=== PATIENT | male | born 1960 | race Caucasian/White ===

== ENCOUNTER → 2019-08-26 | Outpatient (CLI) | payer BC | END | disposition home or self-care (01) | LOC: RAD 15:30 | DX: R05 Cough (principal) ==

== ENCOUNTER → 2019-09-23 | Outpatient (CLI) | payer BC | END | disposition home or self-care (01) | LOC: CT 09-22 09:00 | DX: J18.9 Pneumonia, unspecified organism (principal) ==

== ENCOUNTER → 2019-09-26 | Outpatient (CLI) | payer BC | END | disposition home or self-care (01) | LOC: CP 14:36 | DX: R05 Cough (principal) ==

== ENCOUNTER → 2023-06-22 | Outpatient (CLI) | payer MEDICAID | END | disposition home or self-care (01) | LOC: RAD 15:05 | PROVIDERS: ATTEND Family Medicine | DX: S16.1XXA Strain of muscle, fascia and tendon at neck level, initial encounter (principal); M47.812 Spondylosis without myelopathy or radiculopathy, cervical region; E11.65 Type 2 diabetes mellitus with hyperglycemia; X58.XXXA Exposure to other specified factors, initial encounter; Y93.89 Activity, other specified; Y92.89 Other specified places as the place of occurrence of the external cause; Y99.8 Other external cause status ==

== ENCOUNTER → 2024-05-06 | Outpatient (CLI) | payer MEDICAID ==
[~2024-05-06] MED LIST: IOHEXOL 350 MG/ML 100 ML VIAL IV ONE; SODIUM CHLORIDE 0.9% 100 ML BAG IV ONE
== END | disposition home or self-care (01) ==
LOC: CT 14:00
PROVIDERS: ATTEND Family Medicine
DX: I70.202 Unspecified atherosclerosis of native arteries of extremities, left leg (principal); R20.2 Paresthesia of skin

== ENCOUNTER → 2024-08-01 | Outpatient (CLI) | payer MEDICAID ==
[2024-08-01 11:20] LABS: BASO # 0.1 10*3/uL (0.0-0.1); BASO % 0.7 % (0.0-1.0); EOS # 0.2 10*3/uL (0.0-0.4); EOS % 3.1 % (1.0-4.0); HEMATOCRIT 40.4 % (42.0-52.0); MEAN CELL VOLUME 90.2 fl (80.0-94.0); MEAN CORPUSCULAR HGB 30.1 pg (27.0-31.0); MEAN CORPUSCULAR HGB CONC 33.4 g/dl (33.0-37.0); MEAN PLATELET VOLUME 10.5 fl (9.6-12.3); MONO # 0.5 10*3/uL (0.1-1.0); MONO % 7.2 % (3.0-9.0); NEUT # 4.3 10*3/uL (2.3-7.9); NEUT % 63.2 % (47.0-73.0); PLATELET COUNT AUTOMATED 267 10*3/uL (130-400); RED BLOOD COUNT 4.48 10*6/uL (4.50-5.90); RED CELL DISTRI WIDTH 11.5 % (0-14.5); WHITE BLOOD COUNT 6.8 10*3/uL (4.8-10.8)
[2024-08-01 11:27] LABS: ALKALINE PHOSPHATASE 67 U/L (46-116); BUN 22 mg/dl (9-23); CHLORIDE 104 mmol/L (98-107); CHOLESTEROL 135 mg/dL (<200); LDL CHOLESTEROL 74 mg/dL (9-159); POTASSIUM 4.3 mmol/L (3.4-5.1); SGPT/ALT 22 U/L (5-49); TRIGLYCERIDES 114 mg/dl (<150)
== END | disposition home or self-care (01) ==
LOC: LAB 10:16
PROVIDERS: ATTEND Internal Medicine Cardiovascular Disease
DX: I10 Essential (primary) hypertension (principal); E11.9 Type 2 diabetes mellitus without complications; I73.9 Peripheral vascular disease, unspecified